=== PATIENT | female | born 1995 | race Caucasian/White ===

== ENCOUNTER 2020-10-27 21:04 | Emergency (ER) | payer BC, MEDICAID ==
[2020-10-27] MEDS ORDERED: Acetaminophen 500 MG Tab PO ONE (21:23)
--- NOTE | 2020-10-27 22:00 | EDM.PDOC ---
ED HPI GENERAL MEDICAL PROBLEM - General Chief Complaint: General Stated Complaint: Nosebleed Time Seen by Provider: 10/27/20 21:05 Source of Information: Reports: Patient, Family, Other (teammates ) History Limitations: Reports: No Limitations - History of Present Illness INITIAL COMMENTS - FREE TEXT/NARRATIVE: Patient was involved with a head to head face to face collision with another teammate approximate 1 hour prior to arrival during softball game while trying to catch a fly ball. Patient states she was knocked down and dazed afterwards but denies any LOC she said it took a few minutes for her to get up but she remembers everything that happened. Her main complaint today she has pain to the left side of her nose area and a little bit to her face. She rates pain about a 5 out of 10, dull and throbbing. She also states that she had a few seconds of blurry black kind of vision. But it is since cleared up. She has no other complaints at this time and denies any headache nausea or vomiting unsteadiness lightheadedness dizziness. When speaking to the family though her father and her teammates they state that she seems a little bit slower than normal but her dad also states that she is shy when around other people. Onset: Today Duration: Hour(s): Location: Reports: Head, Face Quality: Reports: Pressure, Throbbing Severity: Mild Improves with: Reports: None Worsens with: Reports: None Associated Symptoms: Reports: No Other Symptoms. Denies: Nausea/Vomiting - Related Data Allergies Allergy/AdvReac Type Severity Reaction Status Date / Time No Known Allergies Allergy Verified 10/27/20 21:06 Home Meds: Home Meds . [No Known Home Meds] 10/27/20 [History] Social & Family History - Tobacco Use Tobacco Use Status *Q: Never Tobacco User ED ROS GENERAL - Review of Systems Review Of Systems: See Below Constitutional: Reports: No Symptoms HEENT: Reports: Nosebleed, Nose Pain, Vision Change. Denies: Dental Pain, Ear Pain, Rhinitis, Sinus Problem Respiratory: Reports: No Symptoms Cardiovascular: Reports: No Symptoms Endocrine: Reports: No Symptoms GI/Abdominal: Reports: No Symptoms : Reports: No Symptoms Musculoskeletal: Reports: No Symptoms Skin: Reports: No Symptoms Neurological: Reports: No Symptoms. Denies: Confusion, Dizziness, Headache, Numbness, Paresthesia, Tingling, Weakness Psychiatric: Reports: No Symptoms Hematologic/Lymphatic: Reports: No Symptoms Immunologic: Reports: No Symptoms ED EXAM, GENERAL - Physical Exam Exam: See Below Exam Limited By: No Limitations General Appearance: Alert, WD/WN, No Apparent Distress, Other (Patient does seem a little bit dazed and slow with answering questions but she is alert and oriented x4 carries normal conversation and answers all questions appropriately follows all commands) Eye Exam: Bilateral Eye: EOMI, Normal Inspection, PERRL Ears: Normal External Exam, Normal Canal, Hearing Grossly Normal, Normal TMs Nose: Normal Inspection, Normal Mucosa, Nasal Tenderness, Nasal Swelling, Other (Mild noted nasal tenderness palpation mostly on the left side of the bridge there is some superficial blood to the exterior part of the left nare there is no deformity noted visually). No: No Blood, Nasal Deformity, Nasal Drainage Throat/Mouth: Normal Inspection, Normal Lips, Normal Teeth, Normal Gums, Normal Oropharynx, Normal Voice, No Airway Compromise Head: Atraumatic, Normocephalic, Facial Tenderness. No: Facial Swelling, Sinus Tenderness Neck: Normal Inspection, Supple, Non-Tender, Full Range of Motion Respiratory/Chest: No Respiratory Distress, Lungs Clear, Normal Breath Sounds, No Accessory Muscle Use, Chest Non-Tender Cardiovascular: Normal Peripheral Pulses, Regular Rate, Rhythm Back Exam: Full Range of Motion Extremities: Normal Inspection, Normal Range of Motion, Non-Tender, No Pedal Edema, Normal Capillary Refill Neurological: Alert, Oriented, CN II-XII Intact, Normal Cognition, Normal Gait, Normal Reflexes, No Motor/Sensory Deficits, Other (She has normal Romberg normal rapid alternating movements [id number]) Psychiatric: Normal Affect Skin Exam: Warm, Dry, Intact, Normal Color, No Rash, Other (Mild superficial abrasion to the left lateral thigh approximately 4 cm x 4 cm) Course - Vital Signs Text/Narrative:: Will CT head secondary to patient slower than normal response and per dad saying she just did not seem fully normal. Patient was rechecked states she feels much better she is more alert and talkative states pain is about 1 or 2 now. She has no other complaints at this time Verbal head injury instructions were given to herself and her father with verbal understanding needs and signs symptoms return to the ER. Last Recorded V/S: Last Vital Signs Temp 37.1 C 10/27/20 21:05 Pulse 87 10/27/20 21:05 Resp 16 10/27/20 21:05 BP 128/78 10/27/20 21:05 Pulse Ox 100 10/27/20 21:05 - Orders/Labs/Meds Orders: Active Orders 24 hr Category Date Time Status Head wo Cont [CT] Stat Exams 10/27/20 21:30 Ordered Max Facial Sinus wo Cont [CT] Stat Exams 10/27/20 21:31 Ordered Sinus Comp Min 3V [CR] Stat Exams 10/27/20 21:25 Stop Req Acetaminophen [Tylenol Extra Strength] Med 10/27/20 21:23 Once 1,000 mg PO ONETIME ONE Departure - Departure Time of Disposition: 22:30 Disposition: Home, Self-Care 01 Condition: Good Clinical Impression: Head injury, Contusion of face, Nasal fracture - Discharge Information *PRESCRIPTION DRUG MONITORING PROGRAM REVIEWED*: No *COPY OF PRESCRIPTION DRUG MONITORING REPORT IN PATIENT ANNMARIE: No Instructions: Head Injury, Adult, Contusion, [id number] Referrals: Radha Reynoso, [facility] PUNCHER [Primary Care Provider] - Forms: ED Department Discharge Sepsis Event Note (ED) - Evaluation Sepsis Screening Result: No Definite Risk - Focused Exam Vital Signs: Vital Signs Temp Pulse Resp BP Pulse Ox 10/27/20 21:05 37.1 C 87 16 128/78 100 - My Orders Last 24 Hours: My Active Orders 10/27/20 21:23 Acetaminophen [Tylenol Extra Strength] 1,000 mg PO ONETIME ONE 10/27/20 21:25 Sinus Comp Min 3V [CR] Stat 10/27/20 21:30 Head wo Cont [CT] Stat 10/27/20 21:31 Max Facial Sinus wo Cont [CT] Stat - Assessment/Plan Last 24 Hours: My Active Orders 10/27/20 21:23 Acetaminophen [Tylenol Extra Strength] 1,000 mg PO ONETIME ONE 10/27/20 21:25 Sinus Comp Min 3V [CR] Stat 10/27/20 21:30 Head wo Cont [CT] Stat 10/27/20 21:31 Max Facial Sinus wo Cont [CT] Stat
== END 2020-10-27 23:05 | disposition home or self-care (01) ==
LOC: LL.ED 21:04
DX: S02.2XXA Fracture of nasal bones, initial encounter for closed fracture (principal); S70.312A Abrasion, left thigh, initial encounter; W50.0XXA Accidental hit or strike by another person, initial encounter; Y93.64 Activity, baseball
CPT/HCPCS: 70450; 70486; 99283-25; 99284; A9270-GY